=== PATIENT | male | born 1980 | race Caucasian/White ===

== ENCOUNTER 2024-06-22 08:01 | Outpatient (AMB) | payer BC, SELFPAY ==
--- NOTE | 2024-06-22 08:04 | A.OFFPC_ITS ---
Vital Signs 3 06/22/24 08:06 Height 5 ft 11 in Weight 204 lb BMI 28.4 BP 110/82 Blood Pressure Location Lt brachial Position Sitting Pulse 82 Pulse Source Pulse Oximeter Pulse Oximetry (%) 98 Oxygen Delivery Method Room Air Intake Visit Reasons: establish care Legal Research Analyst Required: No Accompanied by: Self / Same As Patient Allergies No Known Allergies [No Known Allergies*] Allergy (Verified 06/22/24 08:08) Medication List - Last Reconciled 06/22/24 by Candis Tracey PA-C No Known Home Meds Tobacco use date assessed: 06/22/24 Dental Screening Dental Screen Date: 06/22/24 Did you have a dental visit in the last 12 months?: No Did you have a dental problem in the last 6 months where you did not have access to dental care?: No Was dental information given to patient?: Patient has dentist HPI establish care 2 HPI0 Details 43 year old male coming to the office fo r the first time. Presenting with a chronic scalp lesion for evaluation. The scalp lesion has been present for several years, initially appearing as a hard bump that never healed and has fluctuated in condition. Past intervention included evaluation at [facility] where it was not deemed immediately concerning, but due to its persistence, dermatological referral is advised to assess the need for biopsy. Known ADHD previously unmedicated and generalized anxiety, recently exacerbated by situational stressors including family changes and concerns. Gluten intolerance noted, managed effectively by dietary adjustments eliminating gluten, resolving prior dermatological manifestations and gastrointestinal symptoms. [facility] Medical History Psoriasis Surgical History History of appendectomy Family History Mother No problems noted. 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 1. Little interest or pleasure in doing things: several days 2. Feeling down, depressed, or hopeless: not at all 3. Trouble falling or staying asleep, or sleeping too much: several days 4. Feeling tired or having little energy: several days 5. Poor appetite or overeating: not at all 6. Feeling bad about yourself - or that you are a failure or have let yourself or your family down: not at all 7. Trouble concentrating on things, such as reading the newspaper or watching television: several days 8. Moving or speaking so slowly that other people could have noticed. Or the opposite - being so fidgety or restless that you have been moving around a lot more than usual: not at all 9. Thoughts that you would be better off or of hurting yourself in some way: not at all Total score: 4 Depression Screening Interpretation: Positive Depression Screening Follow-up: Existing condition and Declines treatment Depression Screening Done: Yes Source: Developed by Drs. Asa Goldstein, Bela Herron, Christiano Hand and colleagues, with an educational ashley from [employer]. Thrive Questionnaire Date Thrive assessed: 06/22/24 I am a: Patient What is your living situation today?: I have a steady place to live Within the past 12 months, did the food you bought not last and you didn't have the money to get more?: Never true Within the past 12 months, did you worry whether your food would run out before you got money to buy more?: Never true Do you have trouble paying for medicines?: No Do you have trouble getting transportation to medical appointments?: No Do you have trouble paying your heating and electricity bill?: No Do you have trouble taking care of your child, family member or friend?: No Do you have trouble with day-to-day activities such as bathing, preparing meals, shopping, managing finances, etc.?: No Are you currently unemployed and looking for a job?: No Are you interested in more education?: No Please select the resources that you would like help with: None Currently or been in a relationship where the following occur: No concerns reported THRIVE Score: 0 AUDIT C Alcohol Use Questionnaire (AUDIT-C) 1. How often do you have a drink containing alcohol?: 2-3 times a week 2. How many drinks containing alcohol do you have on a typical day when you are drinking?: 7 to 9 3. How often do you have six or more drinks on one occasion?: Weekly Total Score: 9 Score Reviewed/Action Taken: Yes CODY-7 AMB Questionnaire CODY-7 Date CODY - 7 assessed: 06/22/24 Feeling nervous, anxious, or on edge: 1 = Several days Not being able to stop or control worryin = Not at all Worrying too much about different things: 0 = Not at all Trouble relaxin = Not at all Being so restless that it is hard to sit still: 0 = Not at all Becoming easily annoyed or irritable: 0 = Not at all Feeling afraid as if something awful might happen: 0 = Not at all Total CODY-7 score (0-4 normal; 5-9 mild; 10-14 moderate; 15-21 severe): 1 Source: Developed by Drs. Asa Goldstein, Bela Herron, Christiano Hand and colleagues, with an educational ashley from [employer]. CODY-7 Assessment Billing CODY-7 Assessment Tool: CODY-7 Assessment 09598 Review of Systems Const Denies body aches, Denies chills, Denies fever(s), Denies headache(s) and Denies poor appetite Eyes Reports no additional complaints ENT Denies dizziness and Denies headache(s) Card Denies chest pain, Denies lightheadedness and Denies dyspnea Resp Denies cough and Denies dyspnea GI Denies abdominal pain, Denies constipation, Denies diarrhea, Denies nausea and Denies vomiting Reports no additional complaints Musc Reports no additional complaints and Denies abnormal gait Skin/Breast Reports system reviewed and no additional complaints, except as documented Neuro Denies abnormal gait, Denies dizziness and Denies headache(s) Psych Reports no additional complaints Physical exam (Primary Care) Vital Signs: Last Vital Signs Pulse 82 06/22/24 08:06 BP 110/82 06/22/24 08:06 Pulse Ox 98 06/22/24 08:06 Oxygen Delivery Method Room Air 06/22/24 08:06 BMI result Body Mass Index 28.4 Tobacco/Smoking Status: Tobacco use Status Tobacco use date assessed 06/22/24 06/22/24 08:09 Patient Tobacco Use Status Former Tobacco user 06/22/24 08:10 Tobacco use type Cigarette 06/22/24 08:10 e-Cigarette/Vaping Use Never Used 06/22/24 08:10 PHQ-9: PHQ-9 Score PHQ-9: Total score 4 06/22/24 08:08 Depression Screening Interpretation: Positive Depression Screening Follow-up: Existing condition and Declines treatment Thrive Assessment: Date of Thrive Assessment Date Thrive assessed 06/22/24 06/22/24 08:08 Currently or been in a relationship where the following occur: No concerns reported Const General: cooperative, healthy appearing, comfortable and no acute distress Orientation/consciousness: patient oriented x3 HENMT Head: Yes normocephalic Ears: hearing grossly normal bilaterally General nose exam: Normal external nose present Eyes General: appearance normal, both eyes and all related structures Conjunctivae: conjunctivae normal Neck Neck: Yes full ROM and Yes no lymphadenopathy Neck images: 2 1. Raised scaly lesion with irregular borders Resp Effort & Inspection: normal respiratory effort Auscultation: clear to auscultation bilaterally, no crackles, no rales, no rhonchi and no wheezes Cardio Rate: regular rate Rhythm: regular rhythm Skin General skin exam: no rashes or lesions noted Neuro General: patient oriented x3 Gait exam (Neuro): Normal gait present Extrem General: Yes normal to inspection, Yes full ROM and No edema Psych Affect: normal affect Attitude: cooperative Insight: Good insight present (Psych) Judgement: Good judgement present (Psych) Coding Level of Care Code New Pt Level 4 (64248) Diagnoses Obesity E66.9 Chronic hepatitis C B18.2 Alcohol use disorder F10.90 ADHD F90.9 Gluten intolerance K90.41 Generalized anxiety disorder F41.1 Skin lesion of neck L98.9 Additional Codes CODY-7 Assessment Billing - CODY-7 Assessment Tool: CODY-7 Assessment 35009 ([id number]) Assessment & Plan Assessment & Plan (1) Obesity: Code(s): E66.9 - Obesity, unspecified Category: Medical Plan: Healthy diet and regular exercise is encouraged. (2) Chronic hepatitis C: Comment: treated 10 years ago Code(s): B18.2 - Chronic viral hepatitis C Category: Medical Plan: Previous history of hepatitis-C treated is no longer being followed. (3) Alcohol use disorder: Code(s): F10.90 - Alcohol use, unspecified, uncomplicated Category: Medical Plan: Alcohol consumption will continue to be self-monitored by the patient, with an understanding of potential intervention should issues arise. Declines referral to comprehensive Care Clinic (4) ADHD: Comment: No treatment Code(s): F90.9 - Attention-deficit hyperactivity disorder, unspecified type Category: Medical Plan: For previous diagnosed history of ADHD plan to treat with atomoxetine daily for symptom improvement. Plan to follow up in 2 months and re-evaluate at that time. (5) Gluten intolerance: Comment: dermatitis herpetiformis Code(s): K90.41 - Non-celiac gluten sensitivity Category: Medical Plan: Negative transglutaminase blood work. Managed with dietary modification. (6) Generalized anxiety disorder: Comment: Declines treatment 05/2024 Code(s): F41.1 - Generalized anxiety disorder Category: Medical Plan: Declining treatment for generalized anxiety disorder at this time. States likely due to situational anxiety and agrees to reach out if symptoms worsen or if he desires treatment. (7) Skin lesion of neck: Code(s): L98.9 - Disorder of the skin and subcutaneous tissue, unspecified Category: Medical Plan: A dermatology referral for the persistent, non-healing scalp lesion is warranted to determine the need for biopsy, given patient concern and chronicity Plan Patient was informed and verbally consented to the use of an ambient scriben for clinic note documentation during this visit. This note was constructed using voice recognition software. While every effort has been made to ensure accuracy and tv technician, still areas may have been included sometimes these areas may affect the content or meeting of the given symptoms. Total time spent caring for the patient today was thirty minutes. This includes time spent before the visit reviewing the chart, time spent during the visit, and time spent after the visit and documentation. Orders: Orders 2 Comprehensive Met. Panel Today Z00.00 - Encounter for general adult medical examination without abnormal findings Free T4 (Free Thyroxine) Today Z00.00 - Encounter for general adult medical examination without abnormal findings Lipid Panel Today Z13.220 - Encounter for screening for lipoid disorders Complete Blood Count Auto Diff Today Z00.00 - Encounter for general adult medical examination without abnormal findings TSH reflex Free T4 Today Z00.00 - Encounter for general adult medical examination without abnormal findings Vitamin B12 and Folate Today Z00.00 - Encounter for general adult medical examination without abnormal findings Vitamin D 25-OH Total Today Z00.00 - Encounter for general adult medical examination without abnormal findings Referrals 2 Dermatology Referral L98.9 - Disorder of the skin and subcutaneous tissue, unspecified Medications: New 2 atomoxetine 40 mg PO DAILY 30 caps 2RF
[2024-06-22 08:06] VITALS: BP 110/82; PULSE 82; O2SAT 98; BMI 28.4
== END 2024-06-22 08:36 | disposition home or self-care (01) ==
PROVIDERS: PCP Hospitalist
DX: B18.2 Chronic viral hepatitis C (principal); F41.1 Generalized anxiety disorder; E66.9 Obesity, unspecified; Z68.28 Body mass index [BMI] 28.0-28.9, adult; F10.90 Alcohol use, unspecified, uncomplicated; F90.9 Attention-deficit hyperactivity disorder, unspecified type; K90.41 Non-celiac gluten sensitivity; L98.9 Disorder of the skin and subcutaneous tissue, unspecified

== ENCOUNTER → 2024-06-22 08:01 | Outpatient (BNVA) | payer BC, SELFPAY | PROVIDERS: PCP Hospitalist | DX: E66.9 Obesity, unspecified (principal); Z68.28 Body mass index [BMI] 28.0-28.9, adult; B18.2 Chronic viral hepatitis C; F10.90 Alcohol use, unspecified, uncomplicated; F90.9 Attention-deficit hyperactivity disorder, unspecified type; K90.41 Non-celiac gluten sensitivity; F41.1 Generalized anxiety disorder; L98.9 Disorder of the skin and subcutaneous tissue, unspecified | CPT/HCPCS: 96127 ==

== ENCOUNTER 2024-09-17 09:14 | Outpatient (REF) | payer BC, SELFPAY ==
[2024-09-17 09:29] LABS: MANUAL DIFF FLAG NO
[2024-09-17 10:13] LABS: Basophils Percent Auto 0.6 % (0-2); Eosinophils Absolute Auto 0.3 X10*3/uL (0.0-0.4); Eosinophils Percent Auto 5.6 % (0-4); Hematocrit 41.7 % (42.0-52.0); Hemoglobin 14.3 g/dl (14.0-18.0); Imm Gran Abs Auto 0.02 X10*3/uL (0.00-0.03); Imm Gran Pct Auto 0.4 % (0.0-0.4); Lymphocytes Absolute Auto 2.2 X10*3/uL (1.2-4.9); Mean Corpuscular HGB Conc 34.3 g/dl (31.0-36.0); Mean Corpuscular Hemoglobin 30.8 pg (27.0-33.0); Mean Corpuscular Volume 89.9 fL (80.0-98.0); Mean Platelet Volume 9.7 fL (9.4-12.4); Monocytes Absolute Auto 0.4 X10*3/uL (0.1-1.2); Monocytes Percent Auto 9.1 % (2-11); Neutrophils Absolute Auto 1.9 x10*3/uL (2.0-8.3); Neutrophils Percent Auto 39.3 % (45-73); Platelet Count 184 X10*3/uL (160-400); Red Blood Count 4.64 X10*6/uL (4.60-5.80); Red Cell Distribution Width 12.8 % (11.0-16.0); White Blood Count 4.8 X10*3/uL (4.8-10.8)
[2024-09-17 10:55] LABS: Alanine Aminotransferase 31 U/L (0-40); Albumin Level 4.6 g/dL (3.5-5.0); Alkaline Phosphatase 46 U/L (39-117); Anion Gap 10 (12-20); Aspartate Amino Transferase 27 U/L (5-37); Bilirubin Total 0.5 mg/dL (0.0-1.0); Blood Urea Nitrogen 19 mg/dL (9-16); Carbon Dioxide 25 mmol/L (22-29); Chloride 110 mmol/L (96-108); Cholesterol 162 mg/dL (<200); Estimated Glomerular Filt Rate > 60; Glucose Random 98 mg/dL (60-115); HDL Cholesterol 58 mg/dL (>40); LDL Cholesterol Calculated 89 mg/dL (<100); Potassium 4.3 mmol/L (3.3-5.1); Sodium 141 mmol/L (135-145); Triglycerides 78 mg/dL (<150)
[2024-09-17 11:01] LABS: Free T4 (Free Thyroxine) 0.82 ng/dL (0.71-1.85); TSH reflex Free T4 2.81 uIU/mL (0.32-4.0); Vitamin D 25-OH Total 26.4 ng/mL (>30)
[2024-09-17 11:11] LABS: Folate 8.5 ng/mL (> or = 4.0); Vitamin B12 613 pg/mL (200-900)
== END 2024-09-17 09:15 | disposition home or self-care (01) ==
LOC: HO.LAB 09:14
DX: Z00.00 Encounter for general adult medical examination without abnormal findings (principal); Z13.220 Encounter for screening for lipoid disorders; Z13.6 Encounter for screening for cardiovascular disorders
CPT/HCPCS: 36415; 80053; 80061; 82306; 82607; 82746; 84439; 84443; 85025

== ENCOUNTER 2024-09-24 13:52 | Outpatient (AMB) | payer BC, SELFPAY ==
--- NOTE | 2024-09-24 14:09 | A.OFFPC_ITS ---
Vital Signs 09/24/24 14:10 Height 5 ft 11 in Weight 213 lb 4 oz BMI 29.7 BP 112/62 Blood Pressure Location Lt brachial Position Sitting Pulse 63 Pulse Source Pulse Oximeter Temp 97.1 F Temp Source Temporal Artery Scan Pulse Oximetry (%) 97 Oxygen Delivery Method Room Air Intake Visit Reasons: annual examf/u labs Intake Note: Patient is here today for a physical. Rating Examiner Required: No Hand Washer: Not Required per policy Accompanied by: Self / Same As Patient Allergies No Known Allergies [No Known Allergies*] Allergy (Verified 09/24/24 14:38) Medication List - Last Reconciled 09/24/24 by Candis Tracey PA-C No Known Home Meds Tobacco use date assessed: 09/24/24 Dental Screening Dental Screen Date: 06/22/24 HPI annual examf/u labs HPI Details 44-year-old male with ADHD, alcohol use disorder, chronic hepatitis-C, generalized anxiety disorder last seen 05/2024 coming in for annual exam. Presenting for an annual wellness examination and discussion of ADHD management. The patient reported recent management of ADHD with medication that was stopped after 31 days due to aggravation of symptoms such as inability to concentrate and carry out daily tasks. Chronic alcohol use was discussed; current intake is limited to approximately six drinks on one session per week. Examination by a data support specialist of a noted skin lesion confirmed it as benign scar tissue. Patient engages in high levels of activity through occupation, walking extensively. vaccines: Believes he is up-to-date on his tetanus [facility] Medical History Psoriasis Surgical History History of appendectomy Family History Mother No problems noted. 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 Current occupational exposures/hazards: No Cognitive needs: No Hearing needs: No Vision needs: Yes Questionnaire Thrive Questionnaire Date Thrive assessed: 06/22/24 I am a: Patient What is your living situation today?: I have a steady place to live Within the past 12 months, did the food you bought not last and you didn't have the money to get more?: Never true Within the past 12 months, did you worry whether your food would run out before you got money to buy more?: Never true Do you have trouble paying for medicines?: No Do you have trouble getting transportation to medical appointments?: No Do you have trouble paying your heating and electricity bill?: No Do you have trouble taking care of your child, family member or friend?: No Do you have trouble with day-to-day activities such as bathing, preparing meals, shopping, managing finances, etc.?: No Are you currently unemployed and looking for a job?: No Are you interested in more education?: No Please select the resources that you would like help with: None Currently or been in a relationship where the following occur: No concerns re ported THRIVE Score: 0 CODY-7 AMB Questionnaire CODY-7 Date CODY - 7 assessed: 06/22/24 Source: Developed by Drs. Asa Goldstein, Bela Herron, Christiano Hand and colleagues, with an educational ashley from [employer]. Review of Systems Const Denies body aches, Denies chills, Denies fever(s), Denies headache(s) and Denies poor appetite Eyes Reports no additional complaints and Reports requires corrective lenses ENT Denies dysphagia, Denies dizziness, Denies headache(s) and Denies odynophagia Card Denies chest pain, Denies syncope, Denies edema, Denies irregular heart rhythm, Denies lightheadedness and Denies dyspnea Resp Denies cough and Denies dyspnea GI Denies abdominal pain, Denies constipation, Denies dysphagia, Denies diarrhea, Denies nausea, Denies odynophagia and Denies vomiting Reports no additional complaints Musc Reports no additional complaints and Denies abnormal gait Skin/Breast Reports system reviewed and no additional complaints, except as documented Neuro Denies abnormal gait, Denies dizziness, Denies syncope and Denies headache(s) Psych Reports no additional complaints Physical exam (Primary Care) Vital Signs: Last Vital Signs Temp 97.1 F 09/24/24 14:10 Pulse 63 09/24/24 14:10 BP 112/62 09/24/24 14:10 Pulse Ox 97 09/24/24 14:10 Oxygen Delivery Method Room Air 09/24/24 14:10 BMI result Body Mass Index 29.7 Tobacco/Smoking Status: Tobacco use Status Tobacco use date assessed 09/24/24 09/24/24 14:13 Patient Tobacco Use Status Former Tobacco user 09/24/24 14:13 Tobacco use type Cigarette 09/24/24 14:13 e-Cigarette/Vaping Use Never Used 09/24/24 14:13 Thrive Assessment: Date of Thrive Assessment Date Thrive assessed 06/22/24 09/24/24 14:13 Currently or been in a relationship where the following occur: No concerns reported Const General: cooperative, healthy appearing, comfortable and no acute distress Orientation/consciousness: patient oriented x3 HENMT Head: Yes normocephalic Ears: hearing grossly normal bilaterally General nose exam: Normal external nose present Face and sinus: Yes normal facial exam and Yes sinuses nontender Mouth: Normal oral and palatal mucosa present and tongue normal Throat: Yes posterior oropharynx normal Eyes General: appearance normal, both eyes and all related structures Conjunctivae: conjunctivae normal Pupils: Equal, round and reactive pupils present EOM: EOMs intact bilaterally and No Nystagmus present Neck Neck: Yes full ROM and Yes no lymphadenopathy Chest Chest palpation & inspection: normal inspection of the chest Resp Effort & Inspection: normal respiratory effort Auscultation: clear to auscultation bilaterally, no crackles, no rales, no rhonchi and no wheezes Cardio Rate: regular rate Rhythm: regular rhythm Peripheral pulses: radial pulses present and dorsalis pedis present GI Inspection: Yes normal to inspection and No Abdominal wall edema Palpation (GI): Soft to palpation, not firm and nontender Auscultation: normal bowel sounds Rectal Exam - Male: Yes deferred General: Yes no CVA tenderness Back/Spine/Pelvis Back: no CVA tenderness Skin General skin exam: no rashes or lesions noted Neuro General: patient oriented x3 Cranial nerves: Yes Equal, round and reactive pupils present, Yes Midline tongue present, Yes Ability to bilaterally elevate shoulders present and No Nystagmus present Gait exam (Neuro): Normal gait present Extrem General: Yes normal to inspection, Yes full ROM and No edema Psych Speech and movement: Normal speech and movement present Affect: normal affect Attitude: cooperative Insight: Good insight present (Psych) Judgement: Good judgement present (Psych) Coding Level of Care Code Est Pt Prev Care 40-64y(53792) Diagnoses Annual physical exam Z00.00 Skin lesion of neck L98.9 Generalized anxiety disorder F41.1 ADHD F90.9 Alcohol use disorder F10.90 Obesity E66.9 Chronic hepatitis C B18.2 Gluten intolerance K90.41 Assessment & Plan Assessment & Plan (1) Annual physical exam: Code(s): Z00.00 - Encounter for general adult medical examination without abnormal findings Category: Medical Plan: Patient is up-to-date on all recommended routine screenings and vaccinations for his age. Blood work is up-to-date and has been reviewed with the patient today. Plan to follow up in 6 months for review of ADHD after seeing psych clinic. Healthy diet and regular exercise is encouraged. (2) Skin lesion of neck: Code(s): L98.9 - Disorder of the skin and subcutaneous tissue, unspecified Category: Medical Plan: Went to data support specialist and was not concerned, given injection and was discharged to follow up prn. (3) Generalized anxiety disorder: Comment: Declines treatment 05/2024 Code(s): F41.1 - Generalized anxiety disorder Category: Medical Plan: Declining treatment for generalized anxiety disorder at this time. States likely due to situational anxiety and agrees to reach out if symptoms worsen or if he desires treatment. (4) ADHD: Comment: No treatment Code(s): F90.9 - Attention-deficit hyperactivity disorder, unspecified type Category: Medical Plan: Referral placed for outpatient psych clinic today, negative reaction to [facility]. (5) Alcohol use disorder: Code(s): F10.90 - Alcohol use, unspecified, uncomplicated Category: Medical Plan: Alcohol consumption will continue to be self-monitored by the patient, with an understanding of potential intervention should issues arise. Declines referral to comprehensive Care Clinic (6) Obesity: Code(s): E66.9 - Obesity, unspecified Category: Medical Plan: Healthy diet and regular exercise is encouraged. (7) Chronic hepatitis C: Comment: treated 10 years ago Code(s): B18.2 - Chronic viral hepatitis C Category: Medical Plan: Previous history of hepatitis-C treated is no longer being followed. (8) Gluten intolerance: Comment: dermatitis herpetiformis Code(s): K90.41 - Non-celiac gluten sensitivity Category: Medical Plan: Negative transglutaminase blood work. Managed with dietary modification. Plan The current management approach involves continuing the annual wellness follow- up while addressing ADHD through specialized outpatient psychiatric services. The patient will be evaluated for medication adjustments and provided with a structured treatment plan optimizing therapeutic outcomes. Regular activity and reduced alcohol use are supported alongside addressing low Vitamin D with potential supplementation if clinically significant. The skin lesion does not necessitate further treatment following benign diagnosis. Screening for prostate and colorectal cancer will be administered as per schedule, ensuring preventive health measures are maintained. This note was constructed using voice recognition software. While every effort has been made to ensure accuracy and coal conveyor operator, still areas may have been included sometimes these areas may affect the content or meeting of the given symptoms. Total time spent caring for the patient today was 30 minutes. This includes time spent before the visit reviewing the chart, time spent during the visit, and time spent after the visit and documentation. Patient was informed and verbally consented to the use of an ambient scribe for clinic note documentation during this visit. Orders: Referrals Psychiatry Outpatient Consultation Service F90.9 - Attention-deficit hyperactivity disorder, unspecified type
[2024-09-24 14:10] VITALS: BP 112/62; PULSE 63; TEMP 36.2; O2SAT 97; BMI 29.7
== END 2024-09-24 14:58 | disposition home or self-care (01) ==
LOC: HO.HMCH 13:53
DX: Z00.00 Encounter for general adult medical examination without abnormal findings (principal); L98.9 Disorder of the skin and subcutaneous tissue, unspecified; B18.2 Chronic viral hepatitis C; F41.1 Generalized anxiety disorder; F90.9 Attention-deficit hyperactivity disorder, unspecified type; F10.90 Alcohol use, unspecified, uncomplicated; E66.9 Obesity, unspecified; K90.41 Non-celiac gluten sensitivity

== ENCOUNTER → 2024-09-24 13:52 | Outpatient (BNVA) | payer BC, SELFPAY | DX: Z13.89 Encounter for screening for other disorder (principal) ==

== ENCOUNTER 2024-11-10 14:44 | Outpatient (AMB) | payer BC, SELFPAY ==
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
== END 2024-11-10 16:46 | disposition home or self-care (01) ==
LOC: HO.HOP 14:44
PROVIDERS: Visit Provider Clinical Nurse Specialist Psychiatric/Mental Health, Adult
DX: F90.9 Attention-deficit hyperactivity disorder, unspecified type (principal)
CPT/HCPCS: 90792

== ENCOUNTER → 2024-11-10 14:44 | Outpatient (REF) | payer BC, SELFPAY ==
--- NOTE | 2024-11-10 15:51 | ECG_ITS ---
Test Reason : att def. d/o Blood Pressure : */* mmHG Vent. Rate : 60 BPM Atrial Rate : 60 BPM P-R Int : 140 ms QRS Dur : 88 ms QT Int : 404 ms P-R-T Axes : 55 62 31 degrees QTcB Int : 404 ms Normal sinus rhythm Normal ECG No previous ECGs available Referred By: Jaqueline Ledesma Electronically Signed By: LIZZETTE SPENCER
== END ==
LOC: HO.CARD 14:44
PROVIDERS: Visit Provider Clinical Nurse Specialist Psychiatric/Mental Health, Adult
DX: F90.9 Attention-deficit hyperactivity disorder, unspecified type (principal)
CPT/HCPCS: 90792; 93005

== ENCOUNTER → 2024-11-10 15:51 | Outpatient (BNV) | payer BC, SELFPAY | PROVIDERS: Visit Provider Internal Medicine | DX: F90.9 Attention-deficit hyperactivity disorder, unspecified type (principal) | CPT/HCPCS: 93010 ==

== ENCOUNTER 2024-12-01 14:52 | Outpatient (AMB) | payer BC, SELFPAY ==
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
== END 2024-12-01 16:02 | disposition home or self-care (01) ==
LOC: HO.HOP 14:52
PROVIDERS: Visit Provider Clinical Nurse Specialist Psychiatric/Mental Health, Adult
DX: F90.9 Attention-deficit hyperactivity disorder, unspecified type (principal)
CPT/HCPCS: 99213

== ENCOUNTER 2025-04-20 08:43 | Outpatient (AMB) | payer BC, SELFPAY ==
--- NOTE | 2025-04-20 08:48 | MHC.PC.OV ---
Vital Signs 04/20/25 08:58 Height 5 ft 11 in Weight 205 lb BMI 28.6 BP 116/84 Blood Pressure Location Lt brachial Position Sitting Respiration 18 Pulse 71 Pulse Source Pulse Oximeter Temp 97.4 F Temp Source Temporal Artery Scan Pulse Oximetry (%) 98 Oxygen Delivery Method Room Air Intake Visit Reasons: 6 month follow up Team Leader/Research Psychologist Required: No Accompanied by: Self / Same As Patient Allergies No Known Allergies (No Known Allergies*) Allergy (Verified 04/20/25 09:05) Medication List - Last Reconciled 04/20/25 by Candis Tracey PA-C lisdexamfetamine (Vyvanse) 40 mg PO DAILY Tobacco use date assessed: 09/24/24 Dental Screening Dental Screen Date: 06/22/24 HPI 6 month follow up HPI Details 44-year-old male with ADHD, alcohol use disorder, chronic hepatitis-C, generalized anxiety disorder last seen 08/2024 coming in for follow up. Patient tells us today he does not feel the Vyvanse is working at the current dose. He does not feel that it wears off but rather does start working. He has not other concerns today. He reports he has not been drinking alcohol and denies any cravings at this time. He also reports his anxiety has resolved. [facility] Medical History Psoriasis Surgical History History of appendectomy Family History Mother No problems noted. 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 Current occupational exposures/hazards: No Cognitive needs: No Hearing needs: No Vision needs: Yes Questionnaire Thrive Questionnaire Date Thrive assessed: 06/22/24 I am a: Patient What is your living situation today?: I have a steady place to live Within the past 12 months, did the food you bought not last and you didn't have the money to get more?: Never true Within the past 12 months, did you worry whether your food would run out before you got money to buy more?: Never true Do you have trouble paying for medicines?: No Do you have trouble getting transportation to medical appointments?: No Do you have trouble paying your heating and electricity bill?: No Do you have trouble taking care of your child, family member or friend?: No Do you have trouble with day-to-day activities such as bathing, preparing meals, shopping, managing finances, etc.?: No Are you currently unemployed and looking for a job?: No Are you interested in more education?: No Currently or been in a relationship where the following occur: No concerns reported THRIVE Score: 0 CODY-7 AMB Questionnaire CODY-7 Date CODY - 7 assessed: 06/22/24 Source: Developed by Drs. Asa Goldstein, Bela Herron, Christiano Hand and colleagues, with an educational ashley from [employer]. Review of Systems Const Denies body aches, Denies chills, Denies fever(s), Denies headache(s) and Denies poor appetite Eyes Reports no additional complaints ENT Denies dizziness and Denies headache(s) Card Denies chest pain, Denies syncope, Denies irregular heart rhythm, Denies lightheadedness and Denies dyspnea Resp Denies dyspnea GI Denies abdominal pain, Denies nausea and Denies vomiting Reports no additional complaints Musc Reports no additional complaints and Denies abnormal gait Skin/Breast Reports system reviewed and no additional complaints, except as documented Neuro Denies abnormal gait, Denies dizziness, Denies syncope and Denies headache(s) Psych Reports no additional complaints Physical exam (Primary Care) Tobacco/Smoking Status: Tobacco use Status Tobacco use date assessed 09/24/24 04/20/25 08:49 Patient Tobacco Use Status Former Tobacco user 04/20/25 08:49 Tobacco use type Cigarette 04/20/25 08:49 e-Cigarette/Vaping Use Never Used 04/20/25 08:49 Thrive Assessment: Date of Thrive Assessment Date Thrive assessed 06/22/24 04/20/25 08:49 Currently or been in a relationship where the following occur: No concerns reported Const General: cooperative, healthy appearing, comfortable and no acute distress Orientation/consciousness: patient oriented x3 HENMT Head: Yes normocephalic Ears: hearing grossly normal bilaterally General nose exam: Normal external nose present Eyes General: appearance normal, both eyes and all related structures Conjunctivae: conjunctivae normal Neck Neck: Yes full ROM and Yes no lymphadenopathy Resp Effort & Inspection: normal respiratory effort Auscultation: clear to auscultation bilaterally, no crackles, no rales, no rhonchi and no wheezes Cardio Rate: regular rate Rhythm: regular rhythm Skin General skin exam: no rashes or lesions noted Neuro General: patient oriented x3 Gait exam (Neuro): Normal gait present Extrem General: Yes normal to inspection, Yes full ROM and No edema Psych Affect: normal affect Attitude: cooperative Insight: Good insight present (Psych) Judgement: Good judgement present (Psych) Coding Level of Care Code Est Pt Level 3 (04047) Diagnoses ADHD F90.9 Generalized anxiety disorder F41.1 Alcohol use disorder F10.90 Obesity E66.9 Assessment & Plan Assessment & Plan (1) ADHD: Code(s): F90.9 - Attention-deficit hyperactivity disorder, unspecified type Category: Medical Plan: Plan to increase Vyvanse to 50mg at this time. We will follow up in 2 months via telehealth. If ADHD is still not well managed we will reach out to psych clinic for further adjustments. (2) Generalized anxiety disorder: Comment: Declines treatment 05/2024 Code(s): F41.1 - Generalized anxiety disorder Category: Medical Plan: Resolved at this time. (3) Alcohol use disorder: Code(s): F10.90 - Alcohol use, unspecified, uncomplicated Category: Medical Plan: Has not been drinking and denies any cravings at this time. (4) Obesity: Code(s): E66.9 - Obesity, unspecified Category: Medical Plan: Healthy diet and regular exercise is encouraged. Plan This note was constructed using voice recognition software. While every effort has been made to ensure accuracy and bread wrapping machine feeder, still areas may have been included sometimes these areas may affect the content or meeting of the given symptoms. Total time spent caring for the patient today was 20 minutes. This includes time spent before the visit reviewing the chart, time spent during the visit, and time spent after the visit and documentation. Patient was informed and verbally consented to the use of an ambient scribe for clinic note documentation during this visit. Medications: New lisdexamfetamine (Vyvanse) Partial Fill upon patient request. 50 mg PO DAILY 30 caps 0RF Discontinued lisdexamfetamine (Vyvanse) Partial Fill upon patient request. Discontinued Reason: Patient no longer taking 40 mg PO DAILY 30 caps 0RF
[2025-04-20 08:58] VITALS: BP 116/84; PULSE 71; RESP 18; TEMP 36.3; O2SAT 98; BMI 28.6
== END 2025-04-20 09:20 | disposition home or self-care (01) ==
LOC: HO.HMCH 08:44
DX: F90.9 Attention-deficit hyperactivity disorder, unspecified type (principal); F41.1 Generalized anxiety disorder; F10.90 Alcohol use, unspecified, uncomplicated; E66.9 Obesity, unspecified